=== PATIENT | female | born 1945 | race Two or more races ===

== ENCOUNTER 2016-07-16 11:16 | Day surgery (SDC) | payer MEDICARE, OTHER ==
[~2016-07-16] VITALS: Ht 152.4 cm; Wt 81.4 kg
[~2016-07-16 11:16] MED LIST: DIOVAN PO
[2016-07-16] MEDS ORDERED: BENAZEPRIL (12:04)
[2016-07-16] MEDS ORDERED: DEXILANT (12:04)
[2016-07-16] MEDS ORDERED: ATIVAN (12:04)
[2016-07-16] MEDS ORDERED: LOSARTAN HCTZ (12:04)
[2016-07-16 12:05] VITALS: Ht 152.4 cm; Wt 81.4 kg
[2016-07-16 12:15] VITALS: BP 172/81; PULSE 118; RESP 18
[2016-07-16] MEDS ORDERED: MIDAZOLAM 1 MG/ML 2 ML INJ ONE (12:45)
[2016-07-16] MEDS ORDERED: FENTAnyl 50 MCG/ML VIAL ONE (12:45)
[2016-07-16 13:03] VITALS: BP 129/68; PULSE 78
--- NOTE | 2016-07-16 16:28 | GILP ---
DATE OF PROCEDURE: NAME OF PROCEDURE: Esophagogastroduodenoscopy and biopsy. SURGEON: Pavel Mccarthy MD PREOPERATIVE DIAGNOSES: 1. Abdominal pain. 2. Chronic heartburn. POSTOPERATIVE DIAGNOSES: 1. Hiatal hernia. 2. Gastroesophageal reflux disease. 3. Gastritis with erosions. 4. Gastric mucosal biopsies were taken for Helicobacter pylori test. INDICATION FOR THE PROCEDURE: Ms. Esme Browne is a 71-year-old female patient who had upper abdominal pain and chronic heartburn, not responding to therapy, so the patient was scheduled for en doscopic examination for further evaluation. The procedure and possible complications were well explained to the patient and the family and conse nt was obtained. DESCRIPTION OF PROCEDURE: Under the influence of fentanyl and Versed the gastroscope was carefully introduced into the esophagus and under direct vision it was advanced to the stomach and through the pylorus, into the duodenal bulb and descending duodenum. FINDINGS: ESOPHAGUS: The patient had a hiatal hernia and gastroesophageal reflux disease. STOMACH: She had gastritis with erosions. Gastric mucosal biopsies were taken for H. pylori test. DUODENUM: Normal. She tolerated the procedure very well and there was no complication from the procedure. At the end of the procedure she was awake with stable vital signs and she was discharged home to the care of he r family. IMPRESSION: 1. Hiatal hernia. 2. Gastroesophageal reflux disease. 3. Gastritis with erosions. 4. Gastric mucosal biopsies were taken for Helicobacter pylori test. PLAN: 1. Continue Dexilant. 2. Add Zantac 300 mg p.o. at bedtime. 3. Await H. pylori test report. 4. Await abdominal ultrasound report. Dictated By: PAVEL PEDERSEN/ERIK Conf#: [id number] DID#: [id number]
== END 2016-07-16 13:15 | disposition home or self-care (01) ==
LOC: GIL 11:16
PROVIDERS: ATTEND Internal Medicine Gastroenterology
DX: K44.9 Diaphragmatic hernia without obstruction or gangrene (principal); K21.9 Gastro-esophageal reflux disease without esophagitis; K29.60 Other gastritis without bleeding
CPT/HCPCS: 43239; 87081; J2250; J3010